=== PATIENT | female | born 1960 | race Caucasian/White ===

== ENCOUNTER 2017-04-21 07:57 | Inpatient (IN) | payer BC ==
[2017-04-16 15:36] LABS: BASOPHILS 1.2 %; BASOPHILS ABSOLUTE 0.05 10/3/uL (0.0-0.16); EOSINOPHILS 0.9 %; EOSINOPHILS ABSOLUTE 0.04 10/3/uL (0.0-0.53); HEMATOCRIT 42.6 % (36.0-48.0); HEMOGLOBIN 14.1 g/dL (12.0-16.0); IMMATURE GRANULOCYTES 0.2 %; IMMATURE GRANULOCYTES ABSOLUTE 0.01 10/3/uL (0.0-0.11); LYMPHOCYTES 18.1 %; LYMPHOCYTES ABSOLUTE 0.78 10/3/uL (0.67-4.30); MEAN CORPUS HGB CONC 33.1 g/dL (32.0-36.0); MEAN CORPUSCULAR HEMOGLOB 31.1 pg (26.0-34.0); MEAN PLATELET VOLUME 11.5 fL (9.2-13.0); MONOCYTES 8.8 %; MONOCYTES ABSOLUTE 0.38 10/3/uL (0.21-1.20); NEUTROPHILS 70.8 %; NEUTROPHILS ABSOLUTE 3.04 10/3/uL (2.02-8.40); PLATELET COUNT 246 10/3/uL (150-400); RBC DISTRIBUTION WIDTH 14.2 % (12.0-16.0); RED CELL COUNT 4.54 10/6/uL (4.0-5.6); WHITE BLOOD CELLS 4.3 10/3/uL (4.5-10.5)
[2017-04-16 15:39] LABS: MANUAL DIFF NO %; MEAN CORPUSCULAR VOLUME 93.8 fL (80-100)
[2017-04-16 15:48] LABS: A/G RATIO 1.6 (0.7-1.9); ALKALINE PHOSPHATASE 68 U/L (45-117); CALCIUM, SERUM 9.3 MG/DL (8.5-10.4); CHLORIDE, SERUM 104 MMOL/L (96-112); CO2 (CARBON DIOXIDE) 32 MMOL/L (24-34); CREATININE 0.87 MG/DL (0.55-1.02); GFR AFRICAN AMERICAN 86 ML/MIN (>=60); GFR NON AFRICAN AMERICAN 74 ML/MIN (>=60); GLOBULIN 2.5 G/DL (2.5-4.1); POTASSIUM, SERUM 4.3 MMOL/L (3.5-5.3); SGOT(AST) 23 U/L (5-40); SGPT(ALT) 25 U/L (5-65); SODIUM, SERUM 142 MMOL/L (135-148); TOTAL BILIRUBIN 0.4 MG/DL (0-1.2); TOTAL PROTEIN 6.5 G/DL (6.0-8.5)
[2017-04-16 15:49] LABS: BUN (BLOOD UREA NITROGEN) 14 MG/DL (6-23); GLUCOSE, SERUM 107 MG/DL (60-99)
--- NOTE | ~2017-04-21 | OP ---
Record Of Operation [facility] [address] [place]. [address] NAME: RADHA HOLDER : 58 STATUS : ADM IN PAT#: [id number] AGE: 56 ADM/REG DATE : 04/21/17 MR#: [id number] REPORT SERV DATE: 04/21/17 DICTATED BY: CINDA TAYLOR III DATE: 04/21/17 REPORT STATUS : Draft TRANSCRIBED BY: MODL DATE: 04/21/17 DATE OF PROCEDURE: 04/21/2017 PREOPERATIVE DIAGNOSIS: Malignant melanoma, with metastasis to right groin, with no definite evidence for disease elsewhere. POSTOPERATIVE DIAGNOSIS: Malignant melanoma, with metastasis to right groin, with no definite evidence for disease elsewhere. PROCEDURE: Right inguinal superficial and deep lymphadenectomy. SURGEON: Cinda Taylor M.D. ANESTHESIA: General with intubation. COMPLICATIONS: None. ESTIMATED BLOOD LOSS: 10 mL. SPECIMENS: Superficial and deep right inguinal lymph node dissection. DRAINS: Beck-Hathaway in subcutaneous tissue. LAP AND SPONGE COUNT: Correct x3. BRIEF HISTORY: This 56-year-old female has a remote history of previous malignant melanoma originating from the left lateral abdominal wall. She is status post appropriate treatment for this. In routine followup, she was found to have a large mass in the right groin, which on biopsy was found to be a recurrent melanoma. Her workup showed no definite evidence for disease elsewhere other than several pulmonary nodules, which were of concern and which were being observed. The patient had undergone preoperative chemotherapy with a marked improvement in clinical resolution of her large mass in the right groin. It was now felt that superficial and deep right inguinal lymph node dissection was indicated for therapeutic reasons to render the patient hopefully with no evidence for disease. Regarding the surgery, the procedure, risks, benefits, and alternatives, including but not limited to the risk for bleeding, infection, pain, swelling, seroma formation, hematoma formation, wound failure, wound dehiscence, nerve injury, chronic paresthesias, pain, numbness, neuralgia or neuroma of the involved area, nerve injury, muscle weakness, or paralysis to the involved extremity, chronic lymphedema of the extremity, injury to major vessels, chronic lymphatic drainage or lymphocele formation, unforeseen complications including deep venous thrombosis, pulmonary embolus, myocardial infarction, stroke, pneumonia, and , were fully and completely explained to the patient and her family prior to surgery. The expected length of recovery was explained. The patient had questions, which were answered. She fully understood the risks and agreed to surgery as planned. DESCRIPTION OF PROCEDURE: After being properly identified and after discussing risks of Record Of Operation [facility] [id number] [place]. [address] NAME: RADHA HOLDER : 58 STATUS : ADM IN PAT#: [id number] AGE: 56 ADM/REG DATE : 04/21/17 MR#: [id number] REPORT SERV DATE: 04/21/17 DICTATED BY: CINDA TAYLOR III DATE: 04/21/17 REPORT STATUS : Draft TRANSCRIBED BY: MODL DATE: 04/21/17 surgery with the patient and family again in the preoperative area, she was taken to the operating room and placed in supine position on the operating room table. General anesthesia was administered. She was intubated without difficulty. Her right leg was slightly rotated laterally and externally. The right leg, thigh, groin, and lower abdomen were prepped and draped sterilely in the usual fashion. After an appropriate "time-out" per JCAHO standards, a "lazy S" incision was made beginning superior and medial to the right anterior superior iliac spine, continuing vertically to the inguinal crease, obliquely across the crease, then vertically down to the apex of the femoral triangle. The incision was continued through the subcutaneous tissue. Using sharp dissection, skin flaps were raised medially to the pubic tubercle and the midbody of the adductor lm. Laterally, the flaps were raised to the lateral edge of the sartorius muscle which was clearly defined. Superiorly, the flap was raised to several centimeters above the inguinal ligament, which was clearly defined. Inferiorly, the flap was raised to the apex of the femoral triangle. There was noted to be thickening and edema over the inguinal ligament where the previously large palpable mass was located. This appeared to be a treatment response and result. Using sharp dissection, dissection was carried down to the muscular fascia superiorly. All the fatty node-bearing tissue was swept down to the inguinal ligament and inferior to the inguinal ligament. It was felt off the external oblique fascia. Medially, we swept off the round ligament. The saphenous vein was identified and the tissue was dissected off this and this vein was preserved. The tissue over the femoral artery and femoral vein was also dissected and removed with the specimen. These vessels were carefully protected as was the femoral nerve. The entire block of tissue was thus resected and oriented with a suture proximally. There was a separate small node, just inferior to the inguinal ligament medially, which was felt to be Dana's node. This was very small and this was resected and sent separately for permanent pathology. The wound was irrigated copiously with saline. Hemostasis was assured. A Beck-Hathaway drain was brought through a separate stab wound and placed in the subcutaneous tissue. The subcutaneous tissue was closed with interrupted 3-0 Vicryl sutures. The skin was closed with running subcuticular 4-0 Monocryl stitch. The incision was injected with 0.5% Marcaine. Dressings were applied. Anesthesia was reversed. The patient was taken to the recovery room in stable condition. She tolerated the procedure well. Her family was informed of results of surgery. The patient will remain in the hospital for postoperative care. MAXWELL/ARETHA Cinda Taylor III, M.D. / [id number] CC: Cinda Taylor III, M.D. Record Of Operation [address] [address] NAME: RADHA HOLDER : 58 STATUS : ADM IN [facility]#: [id number] AGE: 56 ADM/REG DATE : 04/21/17 MR#: [id number] REPORT SERV DATE: 04/21/17 DICTATED BY: CINDA TAYLOR III DATE: 04/21/17 REPORT STATUS : Draft TRANSCRIBED BY: MODBobby DATE: 04/21/17 Cristo Robins IV, M.D.
--- NOTE | ~2017-04-21 | PREOPHP ---
PreOp History and Physical [facility] [address] [place]. [address] NAME: RADHA HOLDER : 58 STATUS : ADM IN [facility]#: [id number] AGE: 56 ADM/REG DATE : 04/21/17 MR#: [id number] REPORT SERV DATE: 04/22/17 DICTATED BY: CINDA SHOEMAKER III DATE: 04/07/17 REPORT STATUS : Draft TRANSCRIBED BY: MODBobby DATE: 04/07/17 HISTORY OF PRESENT ILLNESS: This 56-year-old female comes to the operating room for superficial and deep right inguinal lymph node dissection for recurrent malignant melanoma. The patient has a history of stage III malignant melanoma. She initially presented in 2012 with melanoma of the abdominal wall. She underwent wide resection and left inguinal lymph node dissection. She subsequently developed recent evidence for recurrent disease in the right groin. She has undergone chemotherapy with a dramatic response. She comes now for superficial and deep right inguinal lymph node for resection of the residual disease. She has no evidence for disease elsewhere. She has questionable nodules on imaging in the lungs, but these were felt most likely to be benign. PAST MEDICAL HISTORY: 1. History of malignant melanoma, stage III as above. 2. History of left lower extremity lymphedema after lymph node dissection. ALLERGIES: NONE. MEDICATIONS: Escitalopram. PAST SURGICAL HISTORY: Includes radical resection of mid abdominal wall melanoma with positive sentinel inguinal lymph node performed on 04/10/2013, with left superficial and deep inguinal lymph node dissection performed on 06/14/2013. FAMILY HISTORY: Remarkable for breast cancer. REVIEW OF SYSTEMS: The patient's 14-point review of systems is otherwise unremarkable. PHYSICAL EXAMINATION: GENERAL: This is a female, in no acute distress. She is alert and oriented x3. HEENT: Unremarkable. Cranial nerves 2 through 12 were normal. NECK: Unremarkable. No adenopathy. LUNGS: Clear. CARDIAC: Normal. ABDOMEN: Soft and nontender. On the right groin, the patient has mild firmness but no definite palpable mass. Prior to chemotherapy, she had a definite enlarged mass in the right groin. The left groin is normal. EXTREMITIES: Normal. The patient's blood pressure 114/71, pulse 84, temperature 97.6. ASSESSMENT: 1. A 56-year-old female with stage III malignant melanoma, recurrent disease in the right groin, status post chemotherapy with dramatic response. 2. History of initial melanoma of the anterior abdominal wall, status post resection in 2013 with left inguinal lymph node dissection. PreOp History and Physical [address] [address] NAME: RADHA HOLDER : 58 STATUS : ADM IN [facility]#: [id number] AGE: 56 ADM/REG DATE : 04/21/17 MR#: [id number] REPORT SERV DATE: 04/22/17 DICTATED BY: CINDA SHOEMAKER III DATE: 04/07/17 REPORT STATUS : Draft TRANSCRIBED BY: ARETHA DATE: 04/07/17 PLAN: The patient comes to the operating room now for superficial and deep right inguinal lymph node dissection to remove the only known disease present after chemotherapy. This procedure, the risks, benefits, and alternatives, including but not limited to the risk for bleeding, infection, pain, swelling, scarring, deformity to the area, seroma formation, hematoma formation, wound failure, wound dehiscence, chronic lymphatic drainage, lymphocele formation, nerve injury, chronic paresthesia, pain in the thigh, groin, or labia, chronic lymphedema of the arm, injury to any of the major vessels including the femoral artery or vein nerve injuries, muscle weakness or paralysis to the involved extremity, and unforeseen complications including deep venous thrombosis, pulmonary embolus, myocardial infarction, stroke, pneumonia, and , have been fully explained to the patient prior to surgery. The fact that this is a major operation with risk for major morbidity and mortality has been explained. The expected length of recovery was explained. The patient's questions have been answered. She clearly understands the risks and agrees to surgery as planned. MAXWELL/ARETHA Cinda Shoemaker III, M.D. / [id number]
--- NOTE | ~2017-04-21 | DS ---
Discharge Summary [facility] [address] [place]. [address] NAME: RADHA HOLDER : 58 STATUS : DIS IN PAT#: [id number] AGE: 56 ADM/REG DATE : 04/21/17 MR#: [id number] REPORT SERV DATE: 05/01/17 DICTATED BY: CINDA TAYLOR III DATE: 04/30/17 REPORT STATUS : Draft TRANSCRIBED BY: ARETHA DATE: 04/30/17 Data Collection from hospitalization DISCHARGE DIAGNOSES: 1. Malignant melanoma with metastasis to the right groin. 2. History of left lower extremity lymphedema after lymph node dissection. CONSULTATIONS: None. PROCEDURES PERFORMED: Right inguinal superficial and deep lymphadenectomy, 04/21/2017. PATHOLOGY: Lymph nodes 10, right superficial and deep inguinal non-sentinel nodes, regional resection, metastatic malignant melanoma, 1/10 nodes, size of metastasis 3 mm. No extracapsular extension treatment effect. Lymph node excision right most proximal inguinal lymph node. No tumor seen. MEDICATIONS: Lexapro 10 mg every evening, Percocet 7.5/325 three times daily as needed. CONDITION AT DISCHARGE: Stable. DISPOSITION: She was discharged home to continue a soft diet with activity as tolerated. She was to follow up with me in the office as directed. HOSPITAL COURSE: This 56-year-old female had a history of stage III malignant melanoma. She initially presented in 2013 with melanoma of the abdominal wall. She underwent wide resection and left inguinal lymph node dissection. She subsequently developed recent evidence for recurrent disease in the right groin. She had undergone chemotherapy with a dramatic response. She now presented for superficial and deep right inguinal lymph node for resection of the residual disease. She had no evidence for disease elsewhere. She had questionable nodules on imaging in the lungs, but these were felt most likely to be benign. She was admitted for surgery and further treatment. Upon admission to the hospital, she had been taken to the operating room where she did undergo the above procedure. She tolerated this well and was transferred to the recovery room. On postop day #1, she was afebrile and her vital signs were stable. She had no complaints noted and did appear to be doing well. On postop day #2, she did appear to be doing well and was requesting discharge. She had remained afebrile and her vital signs were stable. She was continued on supportive care. On postop day #3, she did remain in stable condition and did state that she had felt better and that she had less pain. She did remain in stable condition and was then discharged with the above instructions. Information collected by: Marvel Carbone. I submit the above information as my discharge summary. TAVON/ARETHA Cinda Taylor III, M.D. Discharge Summary [facility] [address] [place]. [address] NAME: RADHA HOLDER : 58 STATUS : DIS IN PAT#: [id number] AGE: 56 ADM/REG DATE : 04/21/17 MR#: [id number] REPORT SERV DATE: 05/01/17 DICTATED BY: CINDA TAYLOR III DATE: 04/30/17 REPORT STATUS : Draft TRANSCRIBED BY: ARETHA DATE: 04/30/17 / [id number] CC: Freddie Oliver III, MD
[~2017-04-21 07:57] MED LIST: ADVIL PO; LEXAPRO10 PO; PROMETRIUM PO; VICODINTAB PO
[2017-04-22 06:24] LABS: BASOPHILS 0.2 %; BASOPHILS ABSOLUTE 0.02 10/3/uL (0.0-0.16); EOSINOPHILS 0.1 %; EOSINOPHILS ABSOLUTE 0.01 10/3/uL (0.0-0.53); HEMOGLOBIN 12.3 g/dL (12.0-16.0); IMMATURE GRANULOCYTES 0.2 %; IMMATURE GRANULOCYTES ABSOLUTE 0.02 10/3/uL (0.0-0.11); LYMPHOCYTES 6.4 %; LYMPHOCYTES ABSOLUTE 0.85 10/3/uL (0.67-4.30); MEAN CORPUSCULAR HEMOGLOB 31.5 pg (26.0-34.0); MEAN CORPUSCULAR VOLUME 92.6 fL (80-100); MEAN PLATELET VOLUME 11.6 fL (9.2-13.0); MONOCYTES ABSOLUTE 0.93 10/3/uL (0.21-1.20); NEUTROPHILS 86.1 %; PLATELET COUNT 240 10/3/uL (150-400); RBC DISTRIBUTION WIDTH 13.8 % (12.0-16.0); RED CELL COUNT 3.91 10/6/uL (4.0-5.6)
[2017-04-22 06:26] LABS: HEMATOCRIT 36.2 % (36.0-48.0); MANUAL DIFF NO %; WHITE BLOOD CELLS 13.2 10/3/uL (4.5-10.5)
[2017-04-23 06:06] LABS: BASOPHILS ABSOLUTE 0.05 10/3/uL (0.0-0.16); EOSINOPHILS 1.7 %; EOSINOPHILS ABSOLUTE 0.09 10/3/uL (0.0-0.53); HEMATOCRIT 35.8 % (36.0-48.0); HEMOGLOBIN 11.8 g/dL (12.0-16.0); IMMATURE GRANULOCYTES 0.4 %; IMMATURE GRANULOCYTES ABSOLUTE 0.02 10/3/uL (0.0-0.11); LYMPHOCYTES 26.3 %; LYMPHOCYTES ABSOLUTE 1.38 10/3/uL (0.67-4.30); MEAN CORPUSCULAR HEMOGLOB 31.2 pg (26.0-34.0); MEAN CORPUSCULAR VOLUME 94.7 fL (80-100); MEAN PLATELET VOLUME 11.7 fL (9.2-13.0); MONOCYTES 10.5 %; MONOCYTES ABSOLUTE 0.55 10/3/uL (0.21-1.20); NEUTROPHILS 60.1 %; NEUTROPHILS ABSOLUTE 3.16 10/3/uL (2.02-8.40); PLATELET COUNT 218 10/3/uL (150-400); RBC DISTRIBUTION WIDTH 14.2 % (12.0-16.0); RED CELL COUNT 3.78 10/6/uL (4.0-5.6)
[2017-04-23 06:07] LABS: MANUAL DIFF NO %; WHITE BLOOD CELLS 5.3 10/3/uL (4.5-10.5)
[2017-04-24] MEDS ORDERED: PERCOCET 7.5/321 TAB PO ×2 (07:44→07:54)
== END 2017-04-24 12:45 | disposition home or self-care (01) | DRG 825 ==
LOC: SDC 07:57 → SDC/OF 11:47 → 5SO 13:54
PROVIDERS: Surgery
PROC: 07BH0ZX Excision of Right Inguinal Lymphatic, Open Approach, Diagnostic (ICD-10-PCS; principal; 2017-04-21 09:15)
DX: C77.4 Secondary and unspecified malignant neoplasm of inguinal and lower limb lymph nodes (principal); Z85.820 Personal history of malignant melanoma of skin; Z98.890 Other specified postprocedural states; Z80.3 Family history of malignant neoplasm of breast; Z92.21 Personal history of antineoplastic chemotherapy
CPT/HCPCS: 36415; 71020; 80053; 85025; 88305; 88307; 88341; 88342; 93005; A9270-GY; J0690; J1885; J2250; J2270; J2405; J2710; J3010